=== PATIENT | male | born 1945 | race Caucasian/White ===

== ENCOUNTER 2017-04-25 18:30 | Inpatient (IN) | payer MEDICARE ==
--- NOTE | ~2017-04-25 | OP ---
Record Of Operation [facility] [address] [place]. [address] NAME: HECTOR RADER : 44 STATUS : ADM IN PAT#: [id number] AGE: 72 ADM/REG DATE : 04/25/17 MR#: [id number] REPORT SERV DATE: 04/26/17 DICTATED BY: TAMARA SANTAMARIA DATE: 04/25/17 REPORT STATUS : Draft TRANSCRIBED BY: MODMike DATE: 04/25/17 DATE OF PROCEDURE: 04/25/2017 PREOPERATIVE DIAGNOSES: 1. Urinary retention with acute renal failure. 2. Elevated PSA (55). 3. Nodular prostate. POSTOPERATIVE DIAGNOSES: 1. Urinary retention with acute renal failure. 2. Elevated PSA (55). 3. Nodular prostate. PROCEDURE PERFORMED: 1. Cystoscopy with catheter placement. 2. Transrectal prostate needle biopsies (finger guided). ANESTHESIA: General. COMPLICATIONS: None. BLOOD LOSS: 5 mL. SPECIMEN: Prostate needle biopsy x2. INDICATION: Mr. Rader is a 72-year-old who came to the emergency room with weakness and abdominal pain. His abdomen was distended. Creatinine is 19. His postvoid residual was greater than a liter by bladder scan. Nursing attempted to place a catheter in the ER and were unsuccessful. I was able to pass a wire into the bladder in the ER but was unable to pass a catheter over a wire due to severe resistance at the prostate. His PSA from his initial lab draw in the ER was 55. Digital rectal exam shows a severely nodular prostate that is rock hard with ridging on both sides. He is brought for care of the urgent catheter placement technique. Informed consent was obtained. He was brought to the operating room. General anesthesia was administered. Penis and scrotum were prepped and draped in the lithotomy position. A 20-Czech rigid cystoscope was advanced. The urethra was erythematous but with no apparent stricture or perforation. Prostatic urethra was shaggy with a fixed prostatic urethra. Bladder was entered with a rigid scope. I drained 2 L of urine. There was no apparent tumor or stone within the bladder. At this point, I left a wire in the bladder. I removed the cystoscope and passed an 18-Czech Shawnee tip catheter over the wire. At this point, the Martin catheter was plugged for 30 minutes. I regloved. Digital rectal exam showed hard nodularity with a prostate on both sides. The transrectal needle biopsies were obtained x2 under finger guidance. Digital pressure was held against the prostate for 1 minute. There was minimal bleeding from biopsy. He was taken to recovery room in satisfactory condition. He will be admitted to [facility]. Plan is to watch for postobstructive diuresis and allow liberal fluid intake and electrolyte Record Of Operation [address] [address] NAME: HECTOR RADER : 44 STATUS : ADM IN [facility]#: [id number] AGE: 72 ADM/REG DATE : 04/25/17 MR#: [id number] REPORT SERV DATE: 04/26/17 DICTATED BY: TAMARA SANTAMARIA DATE: 04/25/17 REPORT STATUS : Draft TRANSCRIBED BY: LILIBETH DATE: 04/25/17 replacement protocol. I suspect that this is obstruction from a locally advanced prostate cancer. [facility]/LILIBETH Tamara Santamaria M.D. / [id number] CC: Bryson Meza M.D.
--- NOTE | ~2017-04-25 | CN ---
Consultation Report [facility] [address] [place]. [address] NAME: HECTOR RADER : 44 STATUS : ADM IN [facility]#: [id number] AGE: 72 ADM/REG DATE : 04/25/17 MR#: [id number] REPORT SERV DATE: 04/26/17 DICTATED BY: TAMARA SANTAMARIA DATE: 04/25/17 REPORT STATUS : Draft TRANSCRIBED BY: MODL DATE: 04/25/17 CONSULTATION REPORT DATE OF CONSULTATION: 04/25/2017 REASON FOR CONSULTATION: 1. Urinary retention with acute renal failure. 2. Inability to place Martin catheter. HISTORY OF PRESENT ILLNESS: Mr. Rader is a 72-year-old who came to the ER with abdominal pain and distention today. He has had poor p.o. intake. He has had a trickling urinary stream for several months, though he is still voiding. In the ER, labs were checked and his creatinine was markedly elevated at 19. A bladder scan was checked, which was greater than 1 liter. Nursing staff attempted to place Martin catheter, but were unsuccessful. He denies any prior urologic problems. He has been straining to void for months. MEDICATIONS: NSAIDs, which have been held and aspirin. SOCIAL HISTORY: . Nondrinker and nonsmoker. He is retired. REVIEW OF SYSTEMS: No chest pain or shortness of breath. He has had poor p.o. intake with nausea and chronic fullness/bloating. He has an injured rib on his right. No hematuria. No prior urologic surgeries. PHYSICAL EXAMINATION: VITAL SIGNS: 122/82, 98.0, pulse 70, and respirations 18. GENERAL: Pleasant, but uncomfortable 72-year-old, in no acute distress. HEENT: Sclerae anicteric. LUNGS: Clear. HEART: Regular rate and rhythm. CHEST: Clear anteriorly. ABDOMEN: Soft and markedly distended bladder to above the umbilicus. No rebound or guarding. No prior abdominal incisions. GENITOURINARY: Phallus circumcised. Testes normally descended bilaterally. Normal meatus. RECTAL: Digital rectal exam shows a 40 g hard prostate with bilateral nodularity, larger on the right with ridging on the left. EXTREMITIES: No lower extremity edema. No supraclavicular or inguinal adenopathy. LABORATORY DATA: White blood cell count is 9, hematocrit 39, and platelets 225. Sodium 134, BUN 109, and creatinine 19. PSA 55. Alkaline phosphatase borderline elevated at 145. Calcium 9.0. IMAGING: KUB shows paucity of bowel gas in the pelvis and midline upper abdomen. Consultation Report [facility] [id number] [place]. [address] NAME: HECTOR RADER : 44 STATUS : ADM IN PAT#: [id number] AGE: 72 ADM/REG DATE : 04/25/17 MR#: [id number] REPORT SERV DATE: 04/26/17 DICTATED BY: TAMARA SANTAMARIA DATE: 04/25/17 REPORT STATUS : Draft TRANSCRIBED BY: LILIBETH DATE: 04/25/17 PROCEDURE: I prepped the penis in a sterile fashion. The urethra was anesthetized with lidocaine. I was able to pass a filiform into the bladder and dilated with the obstructed urethra tray up to 18-Faroese. Multiple attempts were made at passing the 16-Faroese [place]cill tip catheter over the wire, these were all unsuccessful always with resistance at the prostate/bladder neck. IMPRESSION: 1. Urinary retention. 2. Acute renal failure. 3. Nodular prostate with obstruction. 4. Elevated PSA. PLAN: Mr. Rader's renal failure appears to be at least in part due to a bladder outlet obstruction. I am worried that this is a locally advanced prostate cancer. Proceed to the operating for cystoscopy with catheter placement and prostate biopsy. He received Rocephin today. He will be admitted to the ICU postop. We will need to watch for postobstructive diuresis. [facility]/LILIBETH Tamara Santamaria M.D. / [id number] CC: Bryson Meza M.D.
--- NOTE | ~2017-04-25 | HP ---
History And Physical [address] [place]. [address] NAME: HECTOR RADER : 43 STATUS : ADM IN [facility]#: [id number] AGE: 72 ADM/REG DATE : 04/25/17 MR#: [id number] REPORT SERV DATE: 04/26/17 DICTATED BY: ZAYRA VENTURA DATE: 04/26/17 REPORT STATUS : Draft TRANSCRIBED BY: MODL DATE: 04/26/17 DATE OF ADMISSION: 04/25/2017 CHIEF COMPLAINT: A 72-year-old male presenting with abdominal discomfort and evidence of severe obstructive uropathy. HISTORY OF PRESENT ILLNESS: The patient's history was obtained through careful interview with the patient and , coupled with review of [facility] medical records. The patient for about two years has been having problems with urine, with gradual worsening benign prostatic hypertrophy like symptoms and increasing fatigue. But over the last one to two weeks it has really progressed rapidly to the point where he has to push out just a little drops of urine at that time and never feels as if he fully voids his bladder. He describes increasing abdominal discomfort in the suprapubic area that radiates towards the back, an aching, fullness quality, 8 to 9/10 severity. He has been trying to use ice and heating pads to relieve pain without any success. He describes constipation. He has had chills, but no fevers and poor appetite. He feels queasy, but has no actual nausea or vomiting. About a week ago, he had a fall. He has been feeling weak and unsteady, and he injured his right rib cage, but that pain seems to have subsided over the last several days. No chest pain. No shortness of breath. No cough. REVIEW OF SYSTEMS: Otherwise, a 14-point review of systems was obtained and was negative. PAST MEDICAL HISTORY: 1. Sciatica. 2. Gastroesophageal reflux disorder. 3. Negative cardiac stress test in [address] Nick with ejection fraction 53%. PAST SURGICAL HISTORY: 1. Bilateral hernia operation. 2. Unilateral orchiectomy. 3. Vasectomy. 4. Late-life circumcision. 5. Eye cyst removal. ALLERGIES: TO NEOSPORIN. History And Physical [address] [address] NAME: HECTOR RADER : 44 STATUS : ADM IN PAT#: [id number] AGE: 72 ADM/REG DATE : 04/25/17 MR#: [id number] REPORT SERV DATE: 04/26/17 DICTATED BY: ZAYRA VENTURA DATE: 04/26/17 REPORT STATUS : Draft TRANSCRIBED BY: LILIBETH DATE: 04/26/17 SOCIAL HISTORY: He started smoking when he was 13 years old. Drinks occasional rare alcohol. He lives in [place], [place]. He is to his for 38 years. He is retired from [employer], he used to be a welder production line arc. He has children. FAMILY HISTORY: Two brothers with heart disease and hypertension. Father of intracerebral hemorrhage at 56 years of age. CURRENT MEDICATIONS: 1. Aspirin 81 mg daily. 2. Ibuprofen p.r.n. 3. Zantac 150 mg p.o. daily. PHYSICAL EXAMINATION: VITAL SIGNS: Temperature 98, pulse 77, blood pressure 134/93, respiratory rate 20, and O2 saturation 97% on room air. GENERAL: A pleasant, cooperative male, but he describes distress from his abdominal discomfort. HEENT: Pupils equal, round, and reactive to light. No conjunctival pallor. No scleral icterus. Nares are patent. Oropharynx is clear of obstruction. Dry mucous membranes. NECK: Trachea midline. No thyromegaly. LYMPH: No cervical lymphadenopathy. No supraclavicular lymphadenopathy. RESPIRATORY: Clear to auscultation at bases. No wheezes, rales, or rhonchi. Normal respiratory effort. CARDIOVASCULAR: Regular rate and rhythm. No murmurs, rubs, or gallops. No extremity edema is appreciated. ABDOMEN: Significant suprapubic abdominal discomfort with guarding. No rebound. Distended bladder is noted on exam that goes up above his umbilicus, otherwise no hepatosplenomegaly. DERMATOLOGICAL: Warm and dry extremities. No pallor. No cyanosis. PSYCHIATRIC: Normal affect. Good mood. Alert and oriented x3. LABORATORY DATA: White blood cell count 9.6, hemoglobin 14, hematocrit 39, and platelets 225. Sodium 134, potassium 4.8, chloride 98, bicarb 16, BUN 109, creatinine 19.8, and glucose 64. Urinalysis shows moderate leukocyte esterase with 13 white blood cells. Liver enzymes within normal limits. STUDIES: 1. Chest x-ray by my own evaluation shows no acute cardiopulmonary process. 2. An x-ray of the abdomen shows no acute abnormality. ASSESSMENT AND PLAN: 1. Acute renal failure with BUN of 109, creatinine of 19.8. Provide supportive care in the IMCU initially. 2. Obstructive uropathy. We will obtain a stat consult with Dr. Costello, urologist, for History And Physical [address] [address] NAME: HECTOR RADER : 44 STATUS : ADM IN [facility]#: [id number] AGE: 72 ADM/REG DATE : 04/25/17 MR#: [id number] REPORT SERV DATE: 04/26/17 DICTATED BY: ZAYRA VENTURA DATE: 04/26/17 REPORT STATUS : Draft TRANSCRIBED BY: LILIBETH DATE: 04/26/17 Martin catheter placement. Monitor for postobstructive diuretic effect. 3. Urinary tract infection. Place on IV antibiotics. [facility]/MODL Zayra Ventura M.D. / [id number] CC: Helder Tinajero M.D. John C House, M.D.
--- NOTE | ~2017-04-25 | DS ---
Discharge Summary [facility] [address] [place]. [address] NAME: HECTOR RADER : 43 STATUS : DIS IN PAT#: [id number] AGE: 72 ADM/REG DATE : 04/25/17 MR#: [id number] REPORT SERV DATE: 04/29/17 DICTATED BY: TADEO CASTREJON DATE: 04/29/17 REPORT STATUS : Draft TRANSCRIBED BY: LILIBETH DATE: 04/29/17 ADMISSION DATE: 04/25/2017 DISCHARGE DATE: 04/29/2017 REASON FOR ADMISSION: Acute kidney injury secondary to obstructive uropathy. HPI: Please refer to Dr. Yepze's history and physical dated 04/26 for complete details regarding the patient's admission. In brief, the patient was admitted to the Hospitalist Service for management of his acute kidney injury secondary to obstructive uropathy. HOSPITAL COURSE: The patient had an uncomplicated hospital course. He presented with a BUN of 109 and a creatinine of 19.[address] uropathy[address] Costello with Urology was consulted. He did a cystoscopy with catheter placement along with a transrectal prostate needle biopsy, finger guided. Every day his creatinine had markedly improved once the Martin catheter was placed. It is now down to 2.7 on the day of discharge. He has had no significant issues throughout the hospitalization. His blood pressure was mildly elevated. He was started on amlodipine and his biopsies are currently pending. He has reached maximal hospitalization, discharged today with a Martin catheter and educated on Martin care. DISCHARGE DIAGNOSES: Acute kidney injury secondary to obstructive uropathy, mild bilateral hydronephrosis on renal ultrasound. Elevated PSA with concern for prostate cancer. Biopsy results still pending. PROCEDURES: Include renal ultrasound. CONSULTATION: With Dr. Costello, cystoscopy, Martin placement. DISCHARGE MEDICATIONS: Include ranitidine p.r.n. and amlodipine 5 mg once a day. The patient will follow up Dr. Costello. This is Tadeo Castrejon spending over 30 minutes discharge planning and coordination of care on Mr. Rader. DICTATED BY: MD HENRY Mann/LILIBETH Tadeo Castrejon MD / [id number] Discharge Summary [address] [address] NAME: HECTOR RADER : 44 STATUS : DIS IN PAT#: [id number] AGE: 72 ADM/REG DATE : 04/25/17 MR#: [id number] REPORT SERV DATE: 04/29/17 DICTATED BY: TADEO CASTREJON DATE: 04/29/17 REPORT STATUS : Draft TRANSCRIBED BY: MODL DATE: 04/29/17 CC: Tadeo Castrejon MD
[2017-04-25 18:15] LABS: BASOPHILS 0.4 %; BASOPHILS ABSOLUTE 0.04 10/3/uL (0.0-0.16); EOSINOPHILS 0.9 %; EOSINOPHILS ABSOLUTE 0.09 10/3/uL (0.0-0.53); ER CBC TAT 0 Hrs 13 Mins; HEMATOCRIT 39.2 % (40.0-51.0); IMMATURE GRANULOCYTES 0.2 %; IMMATURE GRANULOCYTES ABSOLUTE 0.02 10/3/uL (0.0-0.11); LYMPHOCYTES 15.2 %; LYMPHOCYTES ABSOLUTE 1.46 10/3/uL (0.67-4.30); MEAN CORPUS HGB CONC 35.7 g/dL (32.0-36.0); MEAN CORPUSCULAR HEMOGLOB 31.3 pg (26.0-34.0); MEAN CORPUSCULAR VOLUME 87.7 fL (80-100); MEAN PLATELET VOLUME 9.9 fL (9.2-13.0); MONOCYTES 9.7 %; MONOCYTES ABSOLUTE 0.93 10/3/uL (0.21-1.20); NEUTROPHILS 73.6 %; NEUTROPHILS ABSOLUTE 7.04 10/3/uL (2.02-8.40); PLATELET COUNT 225 10/3/uL (150-400); RBC DISTRIBUTION WIDTH 12.6 % (12.0-16.0); RED CELL COUNT 4.47 10/6/uL (4.7-6.1); WHITE BLOOD CELLS 9.6 10/3/uL (4.5-10.5)
[2017-04-25 18:17] LABS: MANUAL DIFF NO %
[2017-04-25 18:22] LABS: ASCORBIC ACID (UR NOT ORDER) NEG (NEG); BILIRUBIN, URINE NEGATIVE (NEG); ER URINALYSIS TAT 0 Hrs 20 Mins; KETONE, URINE NEGATIVE (NEG); LEUKOCYTE ESTERASE(NOT OR MOD (NEG); NITRITE (URINE) NEG (NEG); WBC (NOT ORDERED) (RFLEX) 13 (0-5)
[2017-04-25 18:33] LABS: BAND NEUTROPHILS 1 %; ER DIFF TAT 0 Hrs 31 Mins; LYMPHOCYTES 20 %; LYMPHOCYTES ABSOLUTE (CALC) 1.92 10/3/uL (0.67-4.30); MONOCYTES 6 %; MONOCYTES ABSOLUTE (CALC) 0.58 10/3/uL (0.21-1.20); PLATELET ESTIMATE ADQ (ADEQUATE); SEGMENTED NEUTROPHIL (0) 73 %; TOTAL NUCLEATED CELLS 100
[2017-04-25 18:34] LABS: A/G RATIO 0.8 (0.7-1.9); ALBUMIN 3.4 G/DL (3.5-5.0); ALKALINE PHOSPHATASE 145 U/L (45-117); CHLORIDE, SERUM 98 MMOL/L (96-112); CO2 (CARBON DIOXIDE) 16 MMOL/L (24-34); GFR AFRICAN AMERICAN 2 ML/MIN (>=60); GFR NON AFRICAN AMERICAN 2 ML/MIN (>=60); GLOBULIN 4.1 G/DL (2.5-4.1); GLUCOSE, SERUM 64 MG/DL (60-99); POTASSIUM, SERUM 4.8 MMOL/L (3.5-5.3); SGOT(AST) 9 U/L (5-40); SGPT(ALT) 11 U/L (5-65); SODIUM, SERUM 134 MMOL/L (135-148); TOTAL BILIRUBIN 0.4 MG/DL (0-1.2); TOTAL PROTEIN 7.5 G/DL (6.0-8.5)
[2017-04-25 18:36] LABS: BUN (BLOOD UREA NITROGEN) 109 MG/DL (6-23)
[2017-04-25] MEDS ORDERED: ASAB PO (19:17)
[2017-04-25] MEDS ORDERED: MOTRIN IB200 MG PO (19:17)
[2017-04-25] MEDS ORDERED: ZANTAC150 MG PO (19:19)
[2017-04-26 06:07] LABS: BASOPHILS 0.2 %; BASOPHILS ABSOLUTE 0.02 10/3/uL (0.0-0.16); EOSINOPHILS 0.1 %; EOSINOPHILS ABSOLUTE 0.01 10/3/uL (0.0-0.53); HEMATOCRIT 42.1 % (40.0-51.0); HEMOGLOBIN 15.3 g/dL (13.6-17.8); IMMATURE GRANULOCYTES 0.2 %; IMMATURE GRANULOCYTES ABSOLUTE 0.02 10/3/uL (0.0-0.11); LYMPHOCYTES 6.4 %; LYMPHOCYTES ABSOLUTE 0.53 10/3/uL (0.67-4.30); MEAN CORPUS HGB CONC 36.3 g/dL (32.0-36.0); MEAN CORPUSCULAR HEMOGLOB 31.8 pg (26.0-34.0); MEAN CORPUSCULAR VOLUME 87.5 fL (80-100); MEAN PLATELET VOLUME 10.3 fL (9.2-13.0); MONOCYTES 1.4 %; MONOCYTES ABSOLUTE 0.12 10/3/uL (0.21-1.20); NEUTROPHILS 91.7 %; PLATELET COUNT 220 10/3/uL (150-400); RBC DISTRIBUTION WIDTH 12.8 % (12.0-16.0); RED CELL COUNT 4.81 10/6/uL (4.7-6.1); WHITE BLOOD CELLS 8.3 10/3/uL (4.5-10.5)
[2017-04-26 06:12] LABS: MANUAL DIFF NO %
[2017-04-26 06:18] LABS: INTERNATIONAL NORMAL RATI 1.1 UNITS (-); PROTIME (NOT ORD) 14.4 SEC (12.0-14.5)
[2017-04-26 06:19] LABS: PARTIAL THROMBO TIME 45.6 SEC (22.5-37.2)
[2017-04-26 06:23] LABS: A/G RATIO 0.7 (0.7-1.9); ALBUMIN 3.4 G/DL (3.5-5.0); ALKALINE PHOSPHATASE 148 U/L (45-117); CALCIUM, SERUM 9.3 MG/DL (8.5-10.4); CHLORIDE, SERUM 100 MMOL/L (96-112); CO2 (CARBON DIOXIDE) 17 MMOL/L (24-34); GLOBULIN 4.6 G/DL (2.5-4.1); POTASSIUM, SERUM 5.1 MMOL/L (3.5-5.3); SGOT(AST) 12 U/L (5-40); SGPT(ALT) 13 U/L (5-65); SODIUM, SERUM 134 MMOL/L (135-148); TOTAL BILIRUBIN 0.4 MG/DL (0-1.2); TROPONIN I 0.03 NG/ML (<0.05)
[2017-04-26 06:24] LABS: BUN (BLOOD UREA NITROGEN) 98 MG/DL (6-23); GFR AFRICAN AMERICAN 3 ML/MIN (>=60); GFR NON AFRICAN AMERICAN 2 ML/MIN (>=60); GLUCOSE, SERUM 119 MG/DL (60-99)
[2017-04-26 06:35] LABS: PHOSPHORUS, SERUM 8.7 MG/DL (2.5-4.5)
[2017-04-26 15:52] LABS: PHOSPHORUS, SERUM 7.2 MG/DL (2.5-4.5)
[2017-04-27 05:01] LABS: BASOPHILS 0.3 %; BASOPHILS ABSOLUTE 0.02 10/3/uL (0.0-0.16); EOSINOPHILS 0.6 %; EOSINOPHILS ABSOLUTE 0.05 10/3/uL (0.0-0.53); IMMATURE GRANULOCYTES 0.3 %; IMMATURE GRANULOCYTES ABSOLUTE 0.02 10/3/uL (0.0-0.11); LYMPHOCYTES 19.2 %; LYMPHOCYTES ABSOLUTE 1.53 10/3/uL (0.67-4.30); MEAN CORPUS HGB CONC 35.1 g/dL (32.0-36.0); MEAN CORPUSCULAR HEMOGLOB 30.8 pg (26.0-34.0); MEAN CORPUSCULAR VOLUME 87.9 fL (80-100); MEAN PLATELET VOLUME 10.2 fL (9.2-13.0); MONOCYTES 9.3 %; MONOCYTES ABSOLUTE 0.74 10/3/uL (0.21-1.20); NEUTROPHILS 70.3 %; PLATELET COUNT 194 10/3/uL (150-400); RBC DISTRIBUTION WIDTH 13.1 % (12.0-16.0); RED CELL COUNT 3.89 10/6/uL (4.7-6.1)
[2017-04-27 05:02] LABS: HEMATOCRIT 34.2 % (40.0-51.0); MANUAL DIFF NO %
[2017-04-27 05:17] LABS: BUN (BLOOD UREA NITROGEN) 69 MG/DL (6-23); CALCIUM, SERUM 8.5 MG/DL (8.5-10.4); CHLORIDE, SERUM 109 MMOL/L (96-112); CO2 (CARBON DIOXIDE) 22 MMOL/L (24-34); GFR AFRICAN AMERICAN 6 ML/MIN (>=60); GFR NON AFRICAN AMERICAN 5 ML/MIN (>=60); GLUCOSE, SERUM 96 MG/DL (60-99); PHOSPHORUS, SERUM 6.3 MG/DL (2.5-4.5); POTASSIUM, SERUM 4.4 MMOL/L (3.5-5.3); SODIUM, SERUM 141 MMOL/L (135-148)
[2017-04-27 05:18] LABS: CREATININE 9.31 MG/DL (0.70-1.30)
[2017-04-28 08:44] LABS: BASOPHILS 0.4 %; BASOPHILS ABSOLUTE 0.03 10/3/uL (0.0-0.16); EOSINOPHILS 3.5 %; EOSINOPHILS ABSOLUTE 0.26 10/3/uL (0.0-0.53); HEMATOCRIT 35.2 % (40.0-51.0); HEMOGLOBIN 12.3 g/dL (13.6-17.8); IMMATURE GRANULOCYTES 0.3 %; IMMATURE GRANULOCYTES ABSOLUTE 0.02 10/3/uL (0.0-0.11); LYMPHOCYTES ABSOLUTE 1.77 10/3/uL (0.67-4.30); MEAN CORPUS HGB CONC 34.9 g/dL (32.0-36.0); MEAN CORPUSCULAR HEMOGLOB 31.1 pg (26.0-34.0); MEAN CORPUSCULAR VOLUME 89.1 fL (80-100); MEAN PLATELET VOLUME 10.3 fL (9.2-13.0); MONOCYTES 11.1 %; MONOCYTES ABSOLUTE 0.82 10/3/uL (0.21-1.20); NEUTROPHILS 60.7 %; NEUTROPHILS ABSOLUTE 4.48 10/3/uL (2.02-8.40); PLATELET COUNT 163 10/3/uL (150-400); RBC DISTRIBUTION WIDTH 13.2 % (12.0-16.0); RED CELL COUNT 3.95 10/6/uL (4.7-6.1); WHITE BLOOD CELLS 7.4 10/3/uL (4.5-10.5)
[2017-04-28 08:46] LABS: MANUAL DIFF NO %
[2017-04-28 08:56] LABS: CALCIUM, SERUM 8.6 MG/DL (8.5-10.4); CHLORIDE, SERUM 109 MMOL/L (96-112); CO2 (CARBON DIOXIDE) 25 MMOL/L (24-34); GLUCOSE, SERUM 86 MG/DL (60-99); POTASSIUM, SERUM 3.7 MMOL/L (3.5-5.3); SODIUM, SERUM 142 MMOL/L (135-148)
[2017-04-28 08:58] LABS: BUN (BLOOD UREA NITROGEN) 42 MG/DL (6-23); CREATININE 4.42 MG/DL (0.70-1.30); GFR AFRICAN AMERICAN 14 ML/MIN (>=60); GFR NON AFRICAN AMERICAN 12 ML/MIN (>=60)
[2017-04-29 06:43] LABS: BASOPHILS 0.5 %; BASOPHILS ABSOLUTE 0.04 10/3/uL (0.0-0.16); EOSINOPHILS 7.6 %; EOSINOPHILS ABSOLUTE 0.58 10/3/uL (0.0-0.53); HEMATOCRIT 36.5 % (40.0-51.0); HEMOGLOBIN 12.6 g/dL (13.6-17.8); IMMATURE GRANULOCYTES 0.3 %; IMMATURE GRANULOCYTES ABSOLUTE 0.02 10/3/uL (0.0-0.11); LYMPHOCYTES 25.7 %; LYMPHOCYTES ABSOLUTE 1.95 10/3/uL (0.67-4.30); MEAN CORPUS HGB CONC 34.5 g/dL (32.0-36.0); MEAN CORPUSCULAR HEMOGLOB 31.4 pg (26.0-34.0); MEAN PLATELET VOLUME 10.2 fL (9.2-13.0); MONOCYTES 8.8 %; MONOCYTES ABSOLUTE 0.67 10/3/uL (0.21-1.20); NEUTROPHILS 57.1 %; NEUTROPHILS ABSOLUTE 4.34 10/3/uL (2.02-8.40); PLATELET COUNT 158 10/3/uL (150-400); RBC DISTRIBUTION WIDTH 12.5 % (12.0-16.0); RED CELL COUNT 4.01 10/6/uL (4.7-6.1); WHITE BLOOD CELLS 7.6 10/3/uL (4.5-10.5)
[2017-04-29 06:44] LABS: MANUAL DIFF NO %
[2017-04-29 06:54] LABS: CALCIUM, SERUM 9.3 MG/DL (8.5-10.4); CHLORIDE, SERUM 104 MMOL/L (96-112); CO2 (CARBON DIOXIDE) 25 MMOL/L (24-34); GFR AFRICAN AMERICAN 26 ML/MIN (>=60); GFR NON AFRICAN AMERICAN 22 ML/MIN (>=60); GLUCOSE, SERUM 91 MG/DL (60-99); PHOSPHORUS, SERUM 3.3 MG/DL (2.5-4.5); POTASSIUM, SERUM 3.7 MMOL/L (3.5-5.3); SODIUM, SERUM 137 MMOL/L (135-148)
[2017-04-29 06:56] LABS: BUN (BLOOD UREA NITROGEN) 27 MG/DL (6-23); CREATININE 2.73 MG/DL (0.70-1.30)
[2017-04-29] MEDS ORDERED: NORV5 PO (11:08)
[2017-05-26] MEDS ORDERED: [UNRECOGNIZED DRUG - OTHER] PO (11:31)
[2017-05-31] MEDS ORDERED: DSS PO (11:22)
[2017-05-31] MEDS ORDERED: CIP5 PO (11:22)
[2017-05-31] MEDS ORDERED: PCET PO (11:22)
== END 2017-04-29 11:59 | disposition home or self-care (01) | DRG 723 ==
LOC: ER 18:30 → IMCU 19:48 → 4SO 04-26 16:26
PROVIDERS: Hospitalist; Internal Medicine; Physician Assistant; Urology
PROC: 0T9B80Z Drainage of Bladder with Drainage Device, Via Natural or Artificial Opening Endoscopic (ICD-10-PCS; principal; 2017-04-25 22:25)
PROC: 0VB03ZX Excision of Prostate, Percutaneous Approach, Diagnostic (ICD-10-PCS; principal; 2017-04-25 22:25)
DX: C61 Malignant neoplasm of prostate (principal); N17.9 Acute kidney failure, unspecified; N13.30 Unspecified hydronephrosis; N39.0 Urinary tract infection, site not specified; N13.8 Other obstructive and reflux uropathy; R33.9 Retention of urine, unspecified; M54.30 Sciatica, unspecified side; K21.9 Gastro-esophageal reflux disease without esophagitis; Z90.79 Acquired absence of other genital organ(s); Z88.1 Allergy status to other antibiotic agents; F17.200 Nicotine dependence, unspecified, uncomplicated; Z79.82 Long term (current) use of aspirin
CPT/HCPCS: 74022; 76775; 80048; 80053; 81001; 82962; 83605; 83735; 84100; 84153; 84443; 84484; 85025; 85610; 85730; 87086; 88305; 93005; 99285; A9270-GY; C1769; J0330; J0360; J2270; J2405; J3010; J3475